=== PATIENT | male | born 1945 | race Caucasian/White ===

== ENCOUNTER 2016-08-04 05:08 | Emergency (ER) | payer MEDICARE, BC ==
[2016-08-04 04:15] LABS: BASOPHILS 0.6 %; BASOPHILS ABSOLUTE 0.02 10/3/uL (0.0-0.16); EOSINOPHILS 3.3 %; EOSINOPHILS ABSOLUTE 0.11 10/3/uL (0.0-0.53); HEMATOCRIT 32.6 % (40.0-51.0); HEMOGLOBIN 10.4 g/dL (13.6-17.8); IMMATURE GRANULOCYTES 0.3 %; IMMATURE GRANULOCYTES ABSOLUTE 0.01 10/3/uL (0.0-0.11); LYMPHOCYTES 24.3 %; LYMPHOCYTES ABSOLUTE 0.81 10/3/uL (0.67-4.30); MEAN CORPUS HGB CONC 31.9 g/dL (32.0-36.0); MEAN CORPUSCULAR HEMOGLOB 31.1 pg (26.0-34.0); MEAN CORPUSCULAR VOLUME 97.6 fL (80-100); MEAN PLATELET VOLUME 10.2 fL (9.2-13.0); MONOCYTES 1.8 %; MONOCYTES ABSOLUTE 0.06 10/3/uL (0.21-1.20); NEUTROPHILS 69.7 %; NEUTROPHILS ABSOLUTE 2.32 10/3/uL (2.02-8.40); PLATELET COUNT 125 10/3/uL (150-400); RBC DISTRIBUTION WIDTH 15.9 % (12.0-16.0); RED CELL COUNT 3.34 10/6/uL (4.7-6.1)
[2016-08-04 04:18] LABS: ER CBC TAT 0 Hrs 08 Mins; MANUAL DIFF NO %; WHITE BLOOD CELLS 3.3 10/3/uL (4.5-10.5)
[2016-08-04 04:26] LABS: INTERNATIONAL NORMAL RATI 1.1 UNITS (-); PARTIAL THROMBO TIME 33.5 SEC (22.5-37.2)
[2016-08-04 04:35] LABS: BUN (BLOOD UREA NITROGEN) 46 MG/DL (6-23); CALCIUM, SERUM 9.1 MG/DL (8.5-10.4); CHEST PAIN PROFILE TAT 0 Hrs 27 Mins; CHLORIDE, SERUM 100 MMOL/L (96-112); CO2 (CARBON DIOXIDE) 27 MMOL/L (24-34); GFR AFRICAN AMERICAN 5 ML/MIN (>=60); GFR NON AFRICAN AMERICAN 4 ML/MIN (>=60); GLUCOSE, SERUM 106 MG/DL (60-99); POTASSIUM, SERUM 5.2 MMOL/L (3.5-5.3); SODIUM, SERUM 140 MMOL/L (135-148); TROPONIN I 0.03 NG/ML (<0.05)
[~2016-08-04 05:08] MED LIST: 8 HOUR650 MG PO; AMB10 PO; AMB5 PO; APRES10B PO; APRES25 PO; APRES50 PO; ASAB PO; AT25 PO; ATARAX50B PO; ATEN50 PO; C1 PO; CALTRA600D PO; CALTRAT600 PO; COREG12 PO; COREG25 PO; COREG6 PO; COZ50 PO; COZAAR100 MG PO; FLOMAX4 PO; HYDRALAZINE100 MG PO; LIDOCAINE CREAM TOP; LIPITOR10 PO; LIPITOR40 PO; LIQUID TEARS OPH; LORTAB 5 PO; MAG OX PO; MAGOX4 PO; NIFEDIAC CC30 MG PO; NIFEDICAL XL30 MG PO; NORCO1 TA1 PO; NORV10 PO; NORV5 PO; PCET PO; PEP20 PO; PHOSLO PO; PRAVAC PO; PRILO PO; PRILOSEC40 MG PO; PROTONI1 PO; PROTONIX PO; PROTONIX20 MG PO; REMERON30 MG PO; RENAGEL800 PO; ROCALTROL0.5 MCG PO; ROCALTROL1 MCG/ML PO; SYSTANE OPH; TUMSROLL PO; VICODINTAB PO; VIST25 PO; ZOCOR10 PO; ZYRTEC ALLGY10 MG PO; [UNRECOGNIZED DRUG - OTHER] PO
[2016-10-02] MEDS ORDERED: COREG25 PO (21:02)
[2016-10-02] MEDS ORDERED: PROTONIX PO (21:02)
[2016-10-02] MEDS ORDERED: LIPITOR10 PO (21:02)
[2016-10-02] MEDS ORDERED: MAGOX4 PO (21:03)
[2016-10-02] MEDS ORDERED: APRES25 PO (21:03)
[2016-10-02] MEDS ORDERED: STERAPDS12 (21:04)
[2016-10-02] MEDS ORDERED: FLOMAX4 PO (21:05)
[2016-10-02] MEDS ORDERED: HALF81 PO (21:05)
[2016-10-02] MEDS ORDERED: TUMSROLL PO (21:06)
[2016-10-02] MEDS ORDERED: ZYRTEC ALLGY10 MG PO (21:09)
[2016-10-02] MEDS ORDERED: VELTASSA PO (21:09)
[2016-10-02] MEDS ORDERED: NEUR300 PO (21:09)
[2016-10-02] MEDS ORDERED: TEARS PLUS OPH (21:10)
[2016-10-02] MEDS ORDERED: 8 HOUR650 MG PO (21:10)
[2016-11-05] MEDS ORDERED: HALDOL IV (02:48)
[2016-11-05] MEDS ORDERED: HEPA50006 SC (02:48)
[2016-11-05] MEDS ORDERED: EMLA (02:48)
[2016-11-05] MEDS ORDERED: FLOVENT110 INH (02:49)
[2016-11-05] MEDS ORDERED: PCET PEG (02:49)
[2016-11-05] MEDS ORDERED: B1100 PEG (02:49)
[2016-11-05] MEDS ORDERED: BROVANA15 MCG INH (02:50)
[2016-11-05] MEDS ORDERED: PLAVIX PEG (02:50)
[2016-11-05] MEDS ORDERED: ASAB PEG (02:50)
[2016-11-05] MEDS ORDERED: DUONEB INH (02:51)
[2016-11-05] MEDS ORDERED: NOVOLOG SC (02:52)
[2016-11-05] MEDS ORDERED: PREV30 PEG (02:52)
[2016-11-05] MEDS ORDERED: FLORASTOR250 MG PEG (02:53)
[2016-11-05] MEDS ORDERED: COREG25 PEG (02:53)
[2016-11-05] MEDS ORDERED: MAGOX4 PEG (02:53)
[2016-11-05] MEDS ORDERED: NORV5 PEG (02:53)
[2016-11-05] MEDS ORDERED: LIPITOR40 PEG (02:53)
[2016-11-05] MEDS ORDERED: SB325 PEG (02:54)
[2016-11-05] MEDS ORDERED: ULTRAM50 PO (02:54)
[2016-11-05] MEDS ORDERED: FLOMAX4 PEG (02:54)
[2016-11-05] MEDS ORDERED: PANCRELIPASE PEG (02:55)
[2016-11-05] MEDS ORDERED: GENTEA2 (02:56)
[2016-11-05] MEDS ORDERED: BISR PR (02:56)
[2016-11-05] MEDS ORDERED: CAT1 PEG (02:56)
[2016-11-05] MEDS ORDERED: ALBUTEROL0.083 % INH (02:57)
== END 2016-08-04 06:04 | disposition home or self-care (01) ==
LOC: ER 05:08
PROVIDERS: Nurse Practitioner Acute Care
DX: E87.70 Fluid overload, unspecified (principal); M54.5 Low back pain; I11.0 Hypertensive heart disease with heart failure; I50.9 Heart failure, unspecified; Z85.46 Personal history of malignant neoplasm of prostate; Z88.5 Allergy status to narcotic agent; Z88.1 Allergy status to other antibiotic agents; Z88.8 Allergy status to other drugs, medicaments and biological substances; Z79.899 Other long term (current) drug therapy; Z79.82 Long term (current) use of aspirin
CPT/HCPCS: 71010; 80048; 83735; 83880; 84484; 85025; 85610; 85730; 93005; 96374; 96375; 96376; 99285; A9270-GY; J2405